=== PATIENT | female | born 1995 | race Hispanic/Latino ===

== ENCOUNTER 2020-05-14 17:31 | Emergency (ER) | payer OTHER, SELFPAY ==
[2020-05-14 18:45] LABS: #Basophils 0.1 thou/uL (0.0-0.2); #Eosinphils 0.3 thou/uL (0.0-0.7); #Lymphocytes 1.8 thou/uL (1.20-3.40); #Monocytes 0.5 thou/uL (0.11-0.59); #Neutrophils 10.7 thou/uL (1.40-6.50); %Basophils 0.4 % (0.0-1.0); %Eosinophils 1.9 % (0.0-10.0); %Lymphocytes 13.2 % (21.0-51.0); %Monocytes 4.1 % (0.0-10.0); %Neutrophils 80.4 % (42.0-75.0); Hemoglobin 14.6 g/dL (12.0-16.0); Mean Corpuscular HGB CONC 34.1 g/dL (32.0-36.0); Mean Corpuscular Hemoglobin 30.2 pg (27.0-31.0); Mean Corpuscular Volume 88.5 fL (78.0-98.0); Mean Platelet Volume 7.7 fL (7.4-10.4); Platelet Count 387 thou/uL (130-400); RBC Distribution Width 11.8 % (11.5-14.5); Red Blood Cell (RBC) Count 4.85 mill/uL (4.20-5.40); White Blood Cell (WBC) Count 13.3 thou/uL (4.8-10.8)
--- NOTE | 2020-05-14 19:27 | ULT ---
Exam: Pelvic ultrasound HISTORY: Patient reports 12 week . Patient now presents with abdominal cramping and bleeding which s tarted yesterday but has increased today. COMPARISON: None TECHNIQUE: Multiple grayscale and color Doppler images were obtained in a transabdominal and transvag inal pelvic ultrasound. Spectral analysis of the Doppler waveforms of the ovaries were performed. FINDINGS: CERVIX: Unremarkable UTERUS: Normal in size without focal abnormality. ENDOMETRIAL CANAL: The endometrium is thickened measuring approximately 18 mm. There is heterogeneous appearing collection seen within the endometrial canal of the lower uterine segment which extends to the endocervical canal. There is debris seen within this heterogeneous collection. No identifiable discrete pole or yolk sac is seen. No free fluid is present. RIGHT OVARY: Normal flow, without focal mass. LEFT OVARY: Normal flow, without focal mass. IMPRESSION: Heterogeneous collection in the lower uterine segment which contains echogenic material/debris. No di screte pole or yolk sac is visualized to suggest that this represents an intrauterine gestation. Findings could be related to missed and/or hemorrhage and retained products of co nception. Correlation with quantitative beta hCG level is recommended.
[2020-05-14] MEDS ORDERED: Acetaminophen 500 MG TAB ONE (20:11)
[2020-05-14] MEDS ORDERED: Misoprostol 200 MCG TAB VAG SCH (21:00)
[2020-05-14] MEDS ORDERED: Morphine 4 MG/ML VIAL ONE (21:45)
--- NOTE | 2020-05-14 21:58 | CON ---
DATE OF CONSULTATION: 05/14/2020 TIME OF EVALUATION: Roughly 0 until 2110 hours. REQUESTING PROVIDER: Emergency room physician. REASON FOR CONSULT: Vaginal bleeding and suspected first trimester miscarriage. HISTORY OF PRESENT ILLNESS: In brief, this patient presented to the ER as a 24-year-old G4, P3, with 3 previous sections, who had not yet established care. She had previously seen Dr. Green for her C-sections, but she had not been able to get in yet, stating insurance issues. She states that she had been bleeding most of the day and decided to come in for evaluation as she had considered that this was a miscarriage. Per the ultrasound report and conversations with the ER provider, there is no intrauterine , but there is a small amount of debris in the lower uterine segment and there are no adnexal masses. Her Rh type is positive. She denies shortness of breath, chest pain, or abdominal pain, but she does have some pelvic cramping. She states that she passed a lot of clots at home and is unclear of how far along she was, but she thinks she may have been anywhere from "2 months to 3 months." REVIEW OF SYSTEMS: Complete review of systems was checked and is otherwise negative unless specified in the HPI. PAST MEDICAL HISTORY: Negative. ALLERGIES: NONE. PAST SURGICAL HISTORY: Three previous C-sections. SOCIAL HISTORY: Negative. PHYSICAL EXAMINATION: She is normotensive with a pulse in the 80s. Her pulse was 120s to 130s over 80s to 90s. She is afebrile. I performed a speculum examination on the patient along with Brody Ventura (M4). I did not see any active bleeding, but she did have a small amount of vaginal blood in the vagina. She had a small clot/tissue in the cervical os and I removed this with a ring forceps. This was sent to Pathology in a formalin container. The order was placed by the ER practitioner. LABORATORY DATA: Her Rh type is positive and her hematocrit is normal at 40 by verbal report. ASSESSMENT: This is a first trimester, likely completed miscarriage versus incomplete , who is hemodynamically stable and does not currently meet criteria for surgical management (D and C). PLAN: I discussed this with the patient. I reviewed with her Cytotec 800 mcg vaginal administration and she understood. This will be placed by the ER practitioner, who was in the room with me. I did recommend that she get followup within 24 to 48 hours to confirm no further bleeding. We will send a small tissue to Pathology as well. Job ID: [id number]
== END 2020-05-14 22:00 | disposition home or self-care (01) ==
LOC: ERS 17:31
DX: O03.4 Incomplete spontaneous abortion without complication (principal)
CPT/HCPCS: 36415; 76856; 84702; 85025; 86900; 86901; 88305; 96372; J2270

== ENCOUNTER 2020-12-15 07:48 | Outpatient (CLI) | payer OTHER ==
--- NOTE | 2020-12-15 08:34 | ULT ---
OB ULTRASOUND: HISTORY: anatomy FINDINGS: A single live intrauterine gestation is seen with measurements corresponding to an estimated gestatio nal age of 22 weeks 6 daysand GIULIANA at 04/14/2021. The estimated weight measures 573 g or 1 pound and 4 ounces biometry: BPD: 5.38 cm, 22 weeks 3 days HC: 19.98 cm, 20 weeks 1 day AC: 18.72 cm, 23 weeks 4 days FL: 4.0 cm, 23 weeks 2 days heart rate: 127bpm Placenta: Anterior Placenta previa: No CARLI: 20.1cm Cervical length: 5.7cm A three-vessel cord, cord insertion, kidneys, urinary bladder, stomach, 4 chambered heart, late ral ventricles, cerebellum, spine, lips/nose, upper and lower extremities are visualized. No definite anomalies are seen. IMPRESSION: Single live intrauterine gestation of 22 weeks 6 daysestimated gestational age and GIULIANA at 04/14/2021
== END 2020-12-15 07:49 | disposition home or self-care (01) ==
LOC: BICULT 07:48
PROVIDERS: ATTEND Family Medicine
DX: O09.92 Supervision of high risk pregnancy, unspecified, second trimester (principal); Z3A.22 22 weeks gestation of pregnancy
CPT/HCPCS: 76805